=== PATIENT | female | born 1990 | race Caucasian/White ===

== ENCOUNTER 2018-01-11 07:55 | Observation (INO) | payer SELFPAY ==
[~2018-01-11] VITALS: Ht 165.1 cm; Wt 93.4 kg
[~2018-01-11 07:55] MED LIST: PREN1TAB22 PO
[2018-01-11] MEDS ORDERED: SYMB8060 IH (08:51)
[2018-01-11 08:52] VITALS: BP 118/75
[2018-01-11] MEDS ORDERED: PNEUMOCOCCAL VACCINE POLYVALENT 0.5 ML VIAL [PPSV23] IM ONE (09:15)
== END 2018-01-11 13:35 | disposition home or self-care (01) ==
LOC: 4S 07:55 → UNDODISOB 13:35
PROVIDERS: ADMIT Obstetrics & Gynecology; ATTEND Obstetrics & Gynecology
DX: O26.893 Other specified pregnancy related conditions, third trimester (principal); M54.5 Low back pain; Z3A.39 39 weeks gestation of pregnancy
CPT/HCPCS: 59025; G0378

== ENCOUNTER 2018-01-14 10:40 | Observation (INO) | payer OTHER ==
[~2018-01-14] VITALS: Ht 165 cm; Wt 94.3 kg
[~2018-01-14 10:40] MED LIST changes: +SYMB8060 IH
[2018-01-14 11:26] VITALS: BP 131/82
== END 2018-01-14 15:30 | disposition home or self-care (01) ==
LOC: 4S 10:40
PROVIDERS: ADMIT Obstetrics & Gynecology; ATTEND Obstetrics & Gynecology
DX: O62.9 Abnormality of forces of labor, unspecified (principal); Z3A.39 39 weeks gestation of pregnancy
CPT/HCPCS: 59025; 76805; G0378

== ENCOUNTER 2018-01-16 08:25 | Inpatient (IN) | payer OTHER ==
[~2018-01-16] VITALS: Ht 165.1 cm; Wt 93.7 kg
[2018-01-16] MEDS ORDERED: RINGERS SOLUTION,LACTATED 1,000 ML IV PRN (09:17)
[2018-01-16] MEDS ORDERED: OXYTOCIN 30 UNITS/LACT RINGERS 500 ML IV ONE ×2 (09:17→13:05)
[2018-01-16] MEDS ORDERED: CITRIC ACID/SODIUM CITRATE 30 ML SOLUTION UDCUP PO PRN (09:30)
[2018-01-16] MEDS ORDERED: METOCLOPRAMIDE HCL 5 MG/ML 2 ML VIAL IVP PRN (09:30)
[2018-01-16] MEDS ORDERED: LIDOCAINE/PF 1% 30 ML VIAL INJ PRN ×2 (09:30→13:15)
[2018-01-16 10:01] VITALS: BP 132/75
[2018-01-16] MEDS: RINGERS SOLUTION,LACTATED 1,000 ML IV SCH ×2 (10:03→15:47)
[2018-01-16 10:05] LABS: BASOPHILS % (AUTO) 0.6 % (0.0-2.0); EOSINOPHILS % (AUTO) 0.4 % (1.0-6.0); HEMATOCRIT 35.9 % (36-46); LYMPHOCYTES # (AUTO) 2.1 K/uL (1.0-4.8); LYMPHOCYTES % (AUTO) 20.3 % (22.0-44.0); MEAN CORPUSCULAR HEMOGLOBIN 27.3 pg (26.0-34.0); MEAN CORPUSCULAR HGB CONC 33.4 G/dL (31.0-37.0); MEAN CORPUSCULAR VOLUME 82 fL (80-100); MONOCYTES # (AUTO) 0.5 K/uL (0.1-1.0); NEUTROPHILS # (AUTO) 7.7 K/uL (1.8-7.7); NEUTROPHILS % (AUTO) 73.7 % (40.0-70.0); PLATELET COUNT (AUTO)-OB 274 K/uL (150-450); RED BLOOD CELL COUNT(AUTO) 4.39 MIL/uL (4.00-5.20); RED CELL DISTRIBUTION WIDTH 15.2 % (11.5-14.5)
[2018-01-16] MEDS ORDERED: OXYTOCIN 30 UNITS/LACT RINGERS 500 ML IV PRN (10:15)
[2018-01-16] MEDS: FentaNYL CITRATE-PF 100 MCG/2 ML VIAL IVP PRN ×2 (11:12→11:52)
[2018-01-16] MEDS ORDERED: AMPICILLIN SODIUM 2 GM/NS 100 ML IV ONE (11:45)
[2018-01-16] MEDS ORDERED: ROPIVACAINE HCL/PF 0.2% 100 ML ED ONE (11:55)
[2018-01-16] MEDS ORDERED: ROPIVACAINE HCL/PF 0.2% 100 ML ED PRN (12:23)
[2018-01-16] MEDS ORDERED: DiphenhydrAMINE HCL 50 MG/ML VIAL IVP PRN (12:30)
[2018-01-16] MEDS ORDERED: NALBUPHINE HCL 10 MG/ML VIAL IVP PRN (12:30)
[2018-01-16] MEDS ORDERED: ONDANSETRON HCL 4 MG/2 ML VIAL IVP PRN (12:30)
[2018-01-16] MEDS ORDERED: BENZOCAINE 20%/MENTHOL 56 GM SPRAY CANISTER TP PRN (13:15)
[2018-01-16] MEDS ORDERED: GLYCERIN/WITCH HAZEL LEAF 40 PADS JAR TP PRN (13:15)
[2018-01-16] MEDS ORDERED: MAGNESIUM HYDROXIDE SUSPENSION 30 ML UDCUP PO PRN (13:15)
[2018-01-16] MEDS ORDERED: IBUPROFEN 800 MG TABLET PO PRN (13:15)
[2018-01-16] MEDS ORDERED: OxyCODONE HCL/ACETAMINOPHEN 5-325 MG TABLET PO PRN ×2 (13:15)
[2018-01-16] MEDS ORDERED: LANOLIN 7 GM OINTMENT TP PRN (13:15)
[2018-01-16 15:42] LABS: RUBELLA SCREEN (IGG) IMMUNE (IMMUNE)
[2018-01-16] MEDS ORDERED: AMPICILLIN SODIUM 1 GM/NS 50 ML IV SCH (15:45)
[2018-01-16] MEDS ORDERED: OXYGEN THERAPY IH SCH (20:00)
[2018-01-17] MEDS ORDERED: PNEUMOCOCCAL VACCINE POLYVALENT 0.5 ML VIAL [PPSV23] IM ONE (06:00)
[2018-01-17 06:11] LABS: BASOPHILS % (AUTO) 0.6 % (0.0-2.0); EOSINOPHILS % (AUTO) 0.8 % (1.0-6.0); HEMATOCRIT 31.9 % (36-46); HEMOGLOBIN 10.8 g/dL (12.0-16.0); LYMPHOCYTES # (AUTO) 2.9 K/uL (1.0-4.8); LYMPHOCYTES % (AUTO) 27.8 % (22.0-44.0); MEAN CORPUSCULAR HEMOGLOBIN 27.4 pg (26.0-34.0); MEAN CORPUSCULAR HGB CONC 33.7 G/dL (31.0-37.0); MEAN CORPUSCULAR VOLUME 81 fL (80-100); MONOCYTES # (AUTO) 0.7 K/uL (0.1-1.0); MONOCYTES % (AUTO) 6.5 % (2.0-9.0); NEUTROPHILS # (AUTO) 6.8 K/uL (1.8-7.7); NEUTROPHILS % (AUTO) 64.3 % (40.0-70.0); PLATELET COUNT (AUTO)-OB 243 K/uL (150-450); RED BLOOD CELL COUNT(AUTO) 3.93 MIL/uL (4.00-5.20); RED CELL DISTRIBUTION WIDTH 15.5 % (11.5-14.5)
[2018-01-17] MEDS ORDERED: IBUP-2071 PO (10:09)
[2018-01-17] MEDS ORDERED: DSS100 PO (10:09)
[2018-01-17] MEDS ORDERED: FERR-89 PO (10:10)
== END 2018-01-17 15:40 | disposition home or self-care (01) | DRG 807 ==
LOC: OBSVTOIN 08:25 → 4S 08:25
PROVIDERS: ADMIT Obstetrics & Gynecology; ATTEND Obstetrics & Gynecology
PROC: 10E0XZZ Delivery of Products of Conception, External Approach (ICD-10-PCS; principal; 2018-01-16)
PROC: 3E0S3BZ Introduction of Anesthetic Agent into Epidural Space, Percutaneous Approach (ICD-10-PCS; 2018-01-16)
PROC: 00HU33Z Insertion of Infusion Device into Spinal Canal, Percutaneous Approach (ICD-10-PCS; 2018-01-16)
PROC: 3E0234Z Introduction of Serum, Toxoid and Vaccine into Muscle, Percutaneous Approach (ICD-10-PCS; 2018-01-17)
DX: O69.81X0 Labor and delivery complicated by cord around neck, without compression, not applicable or unspecified (principal); Z37.0 Single live birth; O77.0 Labor and delivery complicated by meconium in amniotic fluid; Z3A.39 39 weeks gestation of pregnancy; Z23 Encounter for immunization
CPT/HCPCS: 86592; 86762; 86850; 86900; 86901; 87340; 90686; 90732; J0290; J2590; J2795; J3010; J7120